=== PATIENT | female | born 2000 | race Caucasian/White ===

== ENCOUNTER 2020-06-17 15:17 | Emergency (ER) | payer BC, SELFPAY ==
[~2020-06-17] VITALS: Ht 165.1 cm; Wt 76.6 kg
[2020-06-17] MEDS ORDERED: DEPO150I12 IM (15:26)
[2020-06-17 17:05] LABS: HCG, SERUM QUALITATIVE NEGATIVE (NEGATIVE)
[2020-06-17 17:12] LABS: ALBUMIN 4.1 GM/DL (3.2-5.2); ALT/SGPT 23 U/L (12-78); BILIRUBIN,DIRECT < 0.1 MG/DL (0.0-0.2); BILIRUBIN,TOTAL 0.2 MG/DL (0.2-1.0); BLOOD UREA NITROGEN 10 MG/DL (7-18); CALCIUM LEVEL 9.7 MG/DL (8.5-10.1); CARBON DIOXIDE LEVEL 29 MEQ/L (21-32); CHLORIDE LEVEL 108 MEQ/L (98-107); CK-MB VALUE MASS < 1.0 NG/ML (<3.6); CPK CREATINE PHOSPHOKINASE 67 U/L (26-192); CREATININE FOR GFR 0.85 MG/DL (0.55-1.30); FREE T4 0.99 NG/DL (0.76-1.46); GLOMERULAR FILTRATION RATE > 60.0 (>60); GLUCOSE, FASTING 62 MG/DL (70-100); LIPASE 115 U/L (73-393); MB/CK RELATIVE INDEX 1.49 (< OR =4); SODIUM LEVEL 141 MEQ/L (136-145); THYROID STIMULATING HORMONE 0.524 uIU/ML (0.358-3.740); TOTAL PROTEIN 7.7 GM/DL (6.4-8.2); TROPONIN I < 0.02 NG/ML (< 0.10)
[2020-06-17 17:13] LABS: INR 0.94; PROTHROMBIN TIME 12.8 SECONDS (12.5-14.3)
[2020-06-17 17:14] LABS: PARTIAL THROMBOPLASTIN TIME 29.8 SECONDS (24.2-38.5)
[2020-06-17] MEDS ORDERED: ISOVUE-370 76% 100ML VIAL As Ordered ONE (17:21)
[2020-06-17 17:28] LABS: BASO # 0.1 10^3/uL (0.0-0.2); BASO % 0.7 % (0.0-1.0); EOS # 0.1 10^3/uL (0.0-0.5); HEMATOCRIT 42.4 % (36.0-47.0); HEMOGLOBIN 14.1 g/dl (12.0-15.5); LYMPH # 2.4 10^3/uL (1.5-5.0); LYMPH % 23.8 % (24.0-44.0); MEAN CORPUSCULAR HEMOGLOBIN 28.7 pg (27.0-33.0); MEAN CORPUSCULAR HGB CONC 33.3 g/dl (32.0-36.5); MEAN CORPUSCULAR VOLUME 86.2 fl (80.0-96.0); MONO # 0.7 10^3/uL (0.0-0.8); MONO % 6.8 % (2.0-8.0); NEUTROPHILS # 6.8 10^3/uL (1.5-8.5); NEUTROPHILS % 67.3 % (36.0-66.0); PLATELET COUNT, AUTOMATED 324 10^3/uL (150-450); RED BLOOD COUNT 4.92 10^6/uL (4.00-5.40); WHITE BLOOD COUNT 10.1 10^3/uL (4.0-10.0)
--- NOTE | 2020-06-17 18:44 | REPVR ---
PROCEDURE INFORMATION: Exam: CT Angiography Chest With Contrast Exam date and time: 06/17/2020 6:04 PM Age: 19 years old Clinical indication: Chest pain TECHNIQUE: Imaging protocol: Computed tomographic angiography of the chest with contrast. 3D rendering (Not supervised by radiologist): MIP and/or 3D reconstructed images were created by the technologist. Radiation optimization: All CT scans at this facility use at least one of these dose optimization techniques: automated exposure control; mA and/or kV adjustment per patient size (includes targeted exams where dose is matched to clinical indication); or iterative reconstruction. Contrast material: ISOVUE 370; Contrast volume: 75 ml; Contrast route: INTRAVENOUS (IV); COMPARISON: No relevant prior studies available. FINDINGS: Pulmonary arteries: There is no evidence of filling defects within the pulmonary arterial circulation to suggest pulmonary embolism. Aorta: No thoracic aortic aneurysm or dissection. Lungs: No focal lung consolidation. Pleural spaces: No pleural effusion or pneumothorax. Heart: No cardiomegaly or pericardial effusion. Mediastinal space: There may be some residual thymic tissue in the anterior mediastinum. Lymph nodes: No mediastinal or hilar lymphadenopathy. Bones/joints: Unremarkable. No acute fracture. Soft tissues: Unremarkable. Other findings: No significant findings in the upper abdomen. IMPRESSION: No evidence of pulmonary emboli or pneumonia. Electronically signed by: Ermelinda Ryan On 06/17/2020 18:44:23 PM
[2020-06-17 19:35] VITALS: BP 124/82
--- NOTE | 2020-06-18 19:37 | ECGEPIP ---
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
== END 2020-06-17 19:43 | disposition home or self-care (01) ==
LOC: M ED 15:17
DX: R00.2 Palpitations (principal)
CPT/HCPCS: 36415; 71275; 80048; 80076; 82550; 82553; 83690; 84439; 84443; 84484; 84703; 85025; 85610; 85730; 93005; 93041; 94760; 99285; Q9967

== ENCOUNTER → 2020-09-17 | Outpatient (REF) ==
[~2020-09-17] MED LIST: DEPO150I12 IM
== END ==
LOC: M LABSMTC 09:52
PROVIDERS: ATTEND Pediatrics
DX: Z11.52 Encounter for screening for COVID-19 (principal)

== ENCOUNTER → 2021-01-28 | Outpatient (REF) | payer BC | LOC: M SFHCWAGY 19:05 | PROVIDERS: ATTEND Advanced Practice Midwife | DX: Z12.4 Encounter for screening for malignant neoplasm of cervix (principal) ==

== ENCOUNTER → 2021-11-12 | Outpatient (REF) | payer BC ==
[2021-11-12 21:42] LABS: APPEARANCE, URINE MANUAL CLEAR (CLEAR); COLOR, URINE MANUAL YELLOW (YELLOW)
[2021-11-12 21:43] LABS: BILIRUBIN, URINE MANUAL NEGATIVE (NEGATIVE); GLUCOSE, URINE (UA) MANUAL NEGATIVE (NEGATIVE); KETONE, URINE MANUAL NEGATIVE (NEGATIVE); NITRITE, URINE MANUAL NEGATIVE (NEGATIVE); PROTEIN, URINE MANUAL NEGATIVE (NEGATIVE); UROBILINOGEN, URINE MANUAL NORMAL (NORMAL)
[2021-11-12 21:44] LABS: BLOOD URINE MANUAL POSITIVE (NEGATIVE); LEUKOCYTE ESTERASE, URINE MAN TRACE (NEGATIVE)
[2021-11-12 22:09] LABS: AMORPHOUS SEDIMENT, URINE SMALL AMOUNT (NEGATIVE); BACTERIA, URINE SMALL AMOUNT; HYALINE CAST, URINE NONE SEEN /lpf (0-1); MUCUS, URINE SMALL AMOUNT (NEGATIVE); RBC, URINE 0-1 /hpf (0-3); SQUAMOUS EPITHELIAL CELL URINE MOD AMOUNT /hpf (SMALL AMT)
== END ==
LOC: M LAB REF 21:17
PROVIDERS: ATTEND Physician Assistant Medical
DX: N39.0 Urinary tract infection, site not specified (principal)

== ENCOUNTER → 2022-06-30 | Outpatient (CLI) | payer BC ==
[2022-06-30 18:37] LABS: HEMOGLOBIN 14.1 g/dl (12.0-15.5); MEAN CORPUSCULAR HEMOGLOBIN 29.3 pg (27.0-33.0); MEAN CORPUSCULAR HGB CONC 34.4 g/dl (32.0-36.5); MEAN CORPUSCULAR VOLUME 85.2 fl (80.0-96.0); PLATELET COUNT, AUTOMATED 325 10^3/uL (150-450); RED BLOOD COUNT 4.81 10^6/uL (4.00-5.40); WHITE BLOOD COUNT 9.4 10^3/uL (4.0-10.0)
[2022-06-30 19:41] LABS: HIV 1&2 SCREEN CENTAUR NEGATIVE (NEGATIVE)
[2022-06-30 20:05] LABS: GC DNA AMPLIFICATION NEGATIVE (NEGATIVE)
== END ==
LOC: M PLALAB 15:21
PROVIDERS: ATTEND Advanced Practice Midwife
DX: Z34.01 Encounter for supervision of normal first pregnancy, first trimester (principal)

== ENCOUNTER → 2022-07-27 | Outpatient (CLI) | payer BC | LOC: M PLALAB 08:54 | PROVIDERS: ATTEND Specialist | DX: Z34.01 Encounter for supervision of normal first pregnancy, first trimester (principal) ==

== ENCOUNTER 2022-09-10 07:31 | Emergency (ER) | payer BC ==
[~2022-09-10] VITALS: Ht 165.1 cm; Wt 64.0 kg
[2022-09-10] MEDS ORDERED: ONDA4TAB6 (07:40)
[2022-09-10] MEDS ORDERED: METOCLOPRAMIDE INJ 10MG/2ML VIAL IV ONE (08:00)
[2022-09-10] MEDS ORDERED: NS 1,000 ML IV ONE ×2 (08:00→10:00)
[2022-09-10 08:48] LABS: BASO % 0.2 % (0.0-1.0); HEMATOCRIT 39.3 % (36.0-47.0); LYMPH # 0.8 10^3/uL (1.5-5.0); LYMPH % 6.1 % (24.0-44.0); MEAN CORPUSCULAR HEMOGLOBIN 29.6 pg (27.0-33.0); MEAN CORPUSCULAR HGB CONC 35.6 g/dl (32.0-36.5); MEAN CORPUSCULAR VOLUME 83.1 fl (80.0-96.0); MONO # 0.3 10^3/uL (0.0-0.8); MONO % 2.2 % (2.0-8.0); NEUTROPHILS # 12.6 10^3/uL (1.5-8.5); NEUTROPHILS % 90.8 % (36.0-66.0); PLATELET COUNT, AUTOMATED 334 10^3/uL (150-450); RED BLOOD COUNT 4.73 10^6/uL (4.00-5.40); WHITE BLOOD COUNT 13.8 10^3/uL (4.0-10.0)
[2022-09-10 09:08] LABS: ALBUMIN 3.6 G/DL (3.2-5.2); ALKALINE PHOSPHATASE 110 U/L (46-116); ALT/SGPT 61 U/L (7.0-40); AST/SGOT 43 U/L (<34); BILIRUBIN,TOTAL 0.6 MG/DL (0.3-1.2); BLOOD UREA NITROGEN 5 MG/DL (9-23); CALCIUM LEVEL 9.4 MG/DL (8.5-10.1); CARBON DIOXIDE LEVEL 23 MMOL/L (20-31); CHLORIDE LEVEL 104 MMOL/L (98-107); CREATININE FOR GFR 0.47 MG/DL (0.55-1.30); GLOMERULAR FILTRATION RATE > 60.0 (>60); GLUCOSE, FASTING 100 MG/DL (60-100); POTASSIUM SERUM 3.5 MMOL/L (3.5-5.1); SODIUM LEVEL 139 MMOL/L (136-145); TOTAL PROTEIN 7.2 G/DL (5.7-8.2)
[2022-09-10] MEDS ORDERED: REGL10TA6 PO (12:38)
[2022-09-10] MEDS ORDERED: ONDA4TAB6 PO (12:38)
[2022-09-10 12:47] VITALS: BP 128/77; TEMP 97.8; O2SAT 100
== END 2022-09-10 12:53 | disposition home or self-care (01) ==
LOC: M ED 07:31
DX: O21.9 Vomiting of pregnancy, unspecified (principal); Z3A.19 19 weeks gestation of pregnancy
CPT/HCPCS: 80053; 81001; 85025; 96374; 99284; J2765

== ENCOUNTER → 2022-09-16 | Outpatient (CLI) | payer BC ==
[~2022-09-16] MED LIST changes: +ONDA4TAB6; +ONDA4TAB6 PO; +REGL10TA6 PO
== END ==
LOC: M WHC 13:39
PROVIDERS: ATTEND Advanced Practice Midwife
DX: Z34.02 Encounter for supervision of normal first pregnancy, second trimester (principal); Z3A.20 20 weeks gestation of pregnancy

== ENCOUNTER 2022-10-21 13:05 | Outpatient (CLI) | payer BC ==
[~2022-10-21] VITALS: Ht 165.1 cm; Wt 65.1 kg
[2022-10-21 13:19] VITALS: BP 162/95
[2022-10-21] MEDS ORDERED: HOME MED LIST COMPLETE! XX SCH (13:25)
[2022-10-21 13:35] VITALS: BP 142/73
[2022-10-21] MEDS ORDERED: D5W 1000ML IV ONE (13:45)
[2022-10-21] MEDS ORDERED: PROMETHAZINE 25MG/ML 1ML VIAL IV ONE (13:45)
[2022-10-21] MEDS ORDERED: MULTIVITAMIN -ADULT INJECTION 10 ML in NS 500 ML IV ONE (13:45)
[2022-10-21 14:09] VITALS: BP 128/89
[2022-10-21 14:42] LABS: HEMATOCRIT 37.8 % (36.0-47.0); HEMOGLOBIN 13.3 g/dl (12.0-15.5); MEAN CORPUSCULAR HGB CONC 35.2 g/dl (32.0-36.5); MEAN CORPUSCULAR VOLUME 85.3 fl (80.0-96.0); PLATELET COUNT, AUTOMATED 304 10^3/uL (150-450); RED BLOOD COUNT 4.43 10^6/uL (4.00-5.40); WHITE BLOOD COUNT 8.8 10^3/uL (4.0-10.0)
[2022-10-21] MEDS ORDERED: MULTIVITAMIN -ADULT INJECTION 10 ML in D5W 1,000 ML IV SCH (15:00)
[2022-10-21 15:11] LABS: URIC ACID 9.2 MG/DL (3.1-7.8)
[2022-10-21 15:13] LABS: LDH LACTATE DEHYDROGENASE 154 U/L (120-246)
[2022-10-21 15:14] LABS: ALBUMIN 2.9 G/DL (3.2-5.2); ALKALINE PHOSPHATASE 136 U/L (46-116); ALT/SGPT 143 U/L (7.0-40); AST/SGOT 126 U/L (<34); BILIRUBIN,TOTAL 1.9 MG/DL (0.3-1.2); BLOOD UREA NITROGEN 9 MG/DL (9-23); CALCIUM LEVEL 9.5 MG/DL (8.5-10.1); CARBON DIOXIDE LEVEL 22 MMOL/L (20-31); CHLORIDE LEVEL 100 MMOL/L (98-107); CREATININE FOR GFR 0.47 MG/DL (0.55-1.30); GLOMERULAR FILTRATION RATE > 60.0 (>60); GLUCOSE, FASTING 60 MG/DL (60-100); POTASSIUM SERUM 3.7 MMOL/L (3.5-5.1); SODIUM LEVEL 137 MMOL/L (136-145); TOTAL PROTEIN 6.7 G/DL (5.7-8.2)
[2022-10-21 15:35] LABS: TOTAL PROTEIN,RANDOM URINE 80.4 MG/DL (0.0-14.0)
[2022-10-21 15:40] LABS: CREATININE,RANDOM URINE 195.3 MG/DL
[2022-10-21 15:48] VITALS: BP 121/80
[2022-10-21] MEDS ORDERED: LR 1,000 ML IV SCH (16:55)
[2022-10-21 17:25] VITALS: BP 122/77
[2022-10-21 18:19] VITALS: BP 132/85
[2022-10-21 18:35] LABS: LIPASE 30 U/L (12-53); THYROID STIMULATING HORMONE 0.475 uIU/ML (0.55-4.78)
[2022-10-21 18:36] LABS: AMYLASE 53 U/L (30-118)
[2022-10-21 19:57] LABS: FREE T4 1.32 NG/DL (0.89-1.76)
== END 2022-10-21 22:40 | disposition home or self-care (01) ==
LOC: M LDO 13:05
PROVIDERS: ATTEND Advanced Practice Midwife
DX: O21.8 Other vomiting complicating pregnancy (principal); Z3A.25 25 weeks gestation of pregnancy
CPT/HCPCS: 36415; 59025; 80053; 82150; 82247; 82565; 82570; 83615; 83690; 84156; 84439; 84443; 84450; 84460; 84550; 85027; 96374; 96375; G0463; J2550

== ENCOUNTER → 2022-10-28 | Outpatient (CLI) | payer BC ==
[2022-10-28 15:19] LABS: HEMATOCRIT 34.9 % (36.0-47.0); HEMOGLOBIN 11.5 g/dl (12.0-15.5); MEAN CORPUSCULAR HEMOGLOBIN 29.3 pg (27.0-33.0); PLATELET COUNT, AUTOMATED 287 10^3/uL (150-450); RED BLOOD COUNT 3.92 10^6/uL (4.00-5.40); WHITE BLOOD COUNT 8.9 10^3/uL (4.0-10.0)
[2022-10-28 15:25] LABS: LDH LACTATE DEHYDROGENASE 115 U/L (120-246)
[2022-10-28 15:26] LABS: ALT/SGPT 74 U/L (7.0-40); AST/SGOT 20 U/L (<34); BILIRUBIN,TOTAL 0.4 MG/DL (0.3-1.2); CREATININE FOR GFR 0.45 MG/DL (0.55-1.30); GLOMERULAR FILTRATION RATE > 60.0 (>60)
[2022-10-28 15:30] LABS: URIC ACID 3.2 MG/DL (3.1-7.8)
[2022-10-28 15:59] LABS: TOTAL PROTEIN,RANDOM URINE 20.2 MG/DL (0.0-14.0)
[2022-10-28 16:03] LABS: CREATININE,RANDOM URINE 153.6 MG/DL
== END ==
LOC: M PLALAB 08:47
PROVIDERS: ATTEND Advanced Practice Midwife
DX: O21.0 Mild hyperemesis gravidarum (principal)
CPT/HCPCS: 36415; 82247; 82565; 82570; 82950; 83615; 84156; 84450; 84460; 84550; 85027; 86850; 86900; 86901; J2790

== ENCOUNTER → 2022-11-10 | Outpatient (CLI) | payer BC | LOC: M RAD 10:57 | PROVIDERS: ATTEND Advanced Practice Midwife | DX: Z34.02 Encounter for supervision of normal first pregnancy, second trimester (principal); R93.41 Abnormal radiologic findings on diagnostic imaging of renal pelvis, ureter, or bladder ==

== ENCOUNTER → 2022-11-11 | Outpatient (CLI) | payer BC | LOC: M LAB 07:26 | PROVIDERS: ATTEND Advanced Practice Midwife | DX: O99.810 Abnormal glucose complicating pregnancy (principal); Z3A.00 Weeks of gestation of pregnancy not specified ==

== ENCOUNTER 2023-01-03 15:19 | Outpatient (CLI) | payer BC ==
[~2023-01-03] VITALS: Ht 165.1 cm; Wt 69.5 kg
[2023-01-03 15:40] VITALS: BP 121/84
[2023-01-03] MEDS ORDERED: HOME MED LIST COMPLETE! XX SCH (15:40)
[2023-01-03] MEDS ORDERED: METOCLOPRAMIDE INJ 10MG/2ML VIAL IV PRN ×2 (16:10)
[2023-01-03] MEDS ORDERED: ONDANSETRON 4MG 2ML VIAL IV PRN ×2 (16:10)
[2023-01-03 16:57] LABS: BASO # 0.1 10^3/uL (0.0-0.2); BASO % 0.4 % (0.0-1.0); HEMATOCRIT 36.3 % (36.0-47.0); HEMOGLOBIN 12.4 g/dl (12.0-15.5); LYMPH # 1.4 10^3/uL (1.5-5.0); LYMPH % 12.6 % (24.0-44.0); MEAN CORPUSCULAR HEMOGLOBIN 29.2 pg (27.0-33.0); MEAN CORPUSCULAR HGB CONC 34.2 g/dl (32.0-36.5); MEAN CORPUSCULAR VOLUME 85.4 fl (80.0-96.0); MONO # 0.4 10^3/uL (0.0-0.8); MONO % 3.8 % (2.0-8.0); NEUTROPHILS # 9.3 10^3/uL (1.5-8.5); NEUTROPHILS % 82.7 % (36.0-66.0); PLATELET COUNT, AUTOMATED 331 10^3/uL (150-450); RED BLOOD COUNT 4.25 10^6/uL (4.00-5.40); WHITE BLOOD COUNT 11.2 10^3/uL (4.0-10.0)
[2023-01-03 17:26] LABS: ALBUMIN 2.7 G/DL (3.2-5.2); ALKALINE PHOSPHATASE 202 U/L (46-116); ALT/SGPT 45 U/L (7.0-40); AST/SGOT 31 U/L (<34); BILIRUBIN,TOTAL 0.7 MG/DL (0.3-1.2); BLOOD UREA NITROGEN 9 MG/DL (9-23); CALCIUM LEVEL 9.2 MG/DL (8.5-10.1); CARBON DIOXIDE LEVEL 20 MMOL/L (20-31); CHLORIDE LEVEL 105 MMOL/L (98-107); CREATININE FOR GFR 0.56 MG/DL (0.55-1.30); GLOMERULAR FILTRATION RATE > 60.0 (>60); GLUCOSE, FASTING 54 MG/DL (60-100); POTASSIUM SERUM 4.6 MMOL/L (3.5-5.1); SODIUM LEVEL 137 MMOL/L (136-145); TOTAL PROTEIN 6.8 G/DL (5.7-8.2)
[2023-01-03 18:56] VITALS: BP 125/78
[2023-01-03] MEDS ORDERED: MULTIVITAMIN -ADULT INJECTION 10 ML, THIAMINE INJection 100 MG, FOLIC ACID 1 MG in NS 1... IV ONE (20:00)
[2023-01-03] MEDS ORDERED: REGL10TA6 PO (21:23)
[2023-01-03] MEDS ORDERED: OMEP-173 PO (21:23)
[2023-01-03 21:30] VITALS: BP 121/72
== END 2023-01-03 21:41 | disposition home or self-care (01) ==
LOC: M LDO 15:19
PROVIDERS: ATTEND Obstetrics & Gynecology
DX: O21.8 Other vomiting complicating pregnancy (principal); O26.893 Other specified pregnancy related conditions, third trimester; R25.2 Cramp and spasm; Z3A.35 35 weeks gestation of pregnancy
CPT/HCPCS: 59025; 80053; 81001; 85025; 87086; 87486; 87581; 87633; 87798; 96374; 96375; 96376; G0463; J2765; J3411

== ENCOUNTER → 2023-01-06 | Outpatient (REF) | payer BC ==
[~2023-01-06] MED LIST changes: +OMEP-173 PO
== END ==
LOC: M PLALAB 07:40
PROVIDERS: ATTEND Advanced Practice Midwife
DX: Z34.03 Encounter for supervision of normal first pregnancy, third trimester (principal)

== ENCOUNTER 2023-01-07 19:27 | Outpatient (CLI) | payer BC ==
[~2023-01-07] VITALS: Ht 165.1 cm; Wt 71.3 kg
[2023-01-07 19:38] VITALS: BP 122/86
== END 2023-01-07 20:15 | disposition home or self-care (01) ==
LOC: M LDO 19:27
PROVIDERS: ATTEND Obstetrics & Gynecology
DX: O47.03 False labor before 37 completed weeks of gestation, third trimester (principal); Z3A.36 36 weeks gestation of pregnancy
CPT/HCPCS: 59025; G0463

== ENCOUNTER 2023-01-29 20:44 | Outpatient (CLI) | payer BC, MEDICAID ==
[~2023-01-29] VITALS: Ht 165.1 cm; Wt 73.9 kg
[2023-01-29 21:02] VITALS: BP 122/82
[2023-01-29] MEDS ORDERED: HOME MED LIST COMPLETE! XX SCH (21:05)
== END 2023-01-29 21:49 | disposition home or self-care (01) ==
LOC: M LDO 20:44
PROVIDERS: ATTEND Advanced Practice Midwife
DX: O47.1 False labor at or after 37 completed weeks of gestation (principal); O21.8 Other vomiting complicating pregnancy; Z3A.39 39 weeks gestation of pregnancy
CPT/HCPCS: 59025; G0463

== ENCOUNTER 2023-01-31 12:47 | Inpatient (IN) | payer BC, MEDICAID ==
[~2023-01-31] VITALS: Ht 165.1 cm; Wt 73.3 kg
[2023-01-31] VITALS (29 sets, daily range): BP systolic 105–171; BP diastolic 57–103
[2023-01-31] MEDS ORDERED: HOME MED LIST COMPLETE! XX SCH (13:20)
[2023-01-31] MEDS ORDERED: LACTATED RINGER'S 1000 ML IV STA (13:32)
[2023-01-31] MEDS ORDERED: LIDOCAINE 1% MDV 20ML VIAL INFIL PRN (13:35)
[2023-01-31] MEDS ORDERED: OXYTOCIN DRIP 30 UNITS in IV 1 EA IV PRN (13:35)
[2023-01-31] MEDS ORDERED: CARBOPROST TROMETHAMINE 250 MCG/ML AMP IM PRN (13:35)
[2023-01-31] MEDS ORDERED: METHYLERGONOVINE MALEATE 0.2MG/ML 1ML VIAL IM PRN (13:35)
[2023-01-31] MEDS ORDERED: TRANEXAMIC ACID INJection 1,000 MG in NS 100 ML IV PRN (13:35)
[2023-01-31] MEDS ORDERED: OXYTOCIN INJ 10UNITS/ML 1ML VIAL IM PRN (13:35)
[2023-01-31 14:00] LABS: HEMATOCRIT 36.4 % (36.0-47.0); HEMOGLOBIN 12.3 g/dl (12.0-15.5); MEAN CORPUSCULAR HEMOGLOBIN 28.1 pg (27.0-33.0); MEAN CORPUSCULAR HGB CONC 33.8 g/dl (32.0-36.5); MEAN CORPUSCULAR VOLUME 83.1 fl (80.0-96.0); PLATELET COUNT, AUTOMATED 288 10^3/uL (150-450); RED BLOOD COUNT 4.38 10^6/uL (4.00-5.40); WHITE BLOOD COUNT 12.7 10^3/uL (4.0-10.0)
[2023-01-31] MEDS: LR 1,000 ML IV SCH ×2 (14:47→19:49)
[2023-01-31] MEDS ORDERED: NALOXONE INJ 0.4MG/1ML VIAL IV PRN (14:55)
[2023-01-31] MEDS ORDERED: ONDANSETRON 4MG 2ML VIAL IV PRN (14:55)
[2023-01-31] MEDS ORDERED: EPIDURAL/PCA KEYS XX PRN (14:55)
[2023-01-31] MEDS ORDERED: ePHEDrine SULFATE 25 MG/5 ML(5MG/ML) SYRINGE IVP PRN (14:55)
[2023-01-31] MEDS ORDERED: LR 500 ML IV PRN (14:55)
[2023-01-31] MEDS ORDERED: FENTANYL/ROPIVACAINE/NACL BAG 100 ML EPIDURAL SCH (14:55)
[2023-01-31] MEDS ORDERED: diphenhydrAMINE 50MG/ML VIAL IV PRN (14:55)
[2023-01-31] MEDS ORDERED: OXYTOCIN DRIP 30 UNITS in IV 1 EA IV SCH (19:35)
[2023-01-31] MEDS ORDERED: DIBUCAINE 1% OINTMENT 30GM TOP PRN (22:00)
[2023-01-31] MEDS ORDERED: DOCUSATE SODIUM 100MG CAPSULE PO PRN (22:00)
[2023-01-31] MEDS ORDERED: MOM 30ML SUSPENSION UDC PO PRN (22:00)
[2023-01-31] MEDS ORDERED: RHOGAM 300MCG (1500IU) INJ IM SCH (22:00)
[2023-01-31] MEDS ORDERED: IBUPROFEN 600MG TAB PO PRN (22:00)
[2023-01-31] MEDS ORDERED: ACETAMINOPHEN TAB 650MG DOSE (2X325MG) PO PRN (22:00)
[2023-01-31] MEDS ORDERED: ANUSOL HC CREAM 30GM TOP PRN (22:00)
[2023-01-31] MEDS: IBUPROFEN 800 MG TAB PO PRN (22:46)
[2023-01-31] MEDS: ACETAMINOPHEN 500 MG TAB PO PRN (23:40)
[2023-02-01 00:15] VITALS: BP 115/62; O2SAT 96
[2023-02-01] MEDS: IBUPROFEN 800 MG TAB PO PRN ×2 (06:00→14:30)
[2023-02-01 06:03] VITALS: BP 117/67; O2SAT 97
[2023-02-01] MEDS: PRENATAL VITAMINS CHEWABLE TABLET PO SCH (09:15)
[2023-02-01] MEDS: ACETAMINOPHEN 500 MG TAB PO PRN ×2 (09:46→17:18)
[2023-02-01 18:00] VITALS: BP 111/74; O2SAT 98
[2023-02-02] MEDS: IBUPROFEN 800 MG TAB PO PRN ×2 (00:31→08:12)
[2023-02-02 06:00] VITALS: BP 136/90
[2023-02-02] MEDS: PRENATAL VITAMINS CHEWABLE TABLET PO SCH (09:00)
[2023-02-02] MEDS ORDERED: MEASLES,MUMPS,RUBELLA VACCINE INJ (MMR-II) SC.IMMUN ONE (09:00)
[2023-02-02] MEDS ORDERED: IBUP-1022 PO (10:02)
[2023-02-02] MEDS ORDERED: ACET-683 PO (10:02)
[2023-02-02] MEDS: ACETAMINOPHEN 500 MG TAB PO PRN (12:00)
== END 2023-02-02 12:39 | disposition home or self-care (01) | DRG 560 ==
LOC: M LDO 12:47 → M LDI 13:28 → M OBS 23:50
PROVIDERS: ADMIT Advanced Practice Midwife; ATTEND Advanced Practice Midwife
PROC: 10E0XZZ Delivery of Products of Conception, External Approach (ICD-10-PCS; principal; 2023-01-31)
PROC: 0HQ9XZZ Repair Perineum Skin, External Approach (ICD-10-PCS; 2023-01-31)
PROC: 10907ZC Drainage of Amniotic Fluid, Therapeutic from Products of Conception, Via Natural or Artificial Opening (ICD-10-PCS; 2023-01-31)
DX: O21.0 Mild hyperemesis gravidarum (principal); O70.0 First degree perineal laceration during delivery; Z3A.39 39 weeks gestation of pregnancy; Z37.0 Single live birth

== ENCOUNTER → 2024-02-09 | Outpatient (REF) | payer MEDICAID, OTHER ==
[~2024-02-09] MED LIST changes: +ACET-683 PO; +IBUP-1022 PO; +ONDA-282; +ONDA-282 PO; -ONDA4TAB6; -ONDA4TAB6 PO
== END ==
LOC: M PLALAB 09:19
PROVIDERS: ATTEND Advanced Practice Midwife
DX: Z01.419 Encounter for gynecological examination (general) (routine) without abnormal findings (principal); Z12.4 Encounter for screening for malignant neoplasm of cervix